=== PATIENT | female | born 1950 | race Caucasian/White ===

== ENCOUNTER 2018-01-15 12:30 | Emergency (ER) | payer OTHER ==
[~2018-01-15] VITALS: Ht 165.1 cm; Wt 90.7 kg
[~2018-01-15 12:30] MED LIST: ALBU90OI6 INH; ALBU90OI61; AMIT25 PO; Ativan1 MG PO; BACL10 PO; BECL80OI INH; Benadryl 50 mg50 MG PO; CITA20 PO; Cleocin HCl300 MG PO; DIAZ5 PO; DILT120 PO; DILT30; DOCU100; FERRETTS; FURO20 PO; HYDACE10B PO; HYDACE5 PO; HYDMOR4 PO; HYDPAM25 PO; Hydrocodone-Ap1 EA23; IRON150C PO; LABE200 PO; LAVAP17G; LORPSEER12; METO50ER; METPRE4DP PO; MONT10T PO; Micro-K10 MEQ PO; Multiple Vitam1 EAC1; OMEP20ER PO; OXYC5 PO; PREG200 PO; Pepcid40 MG PO; Percocet 5-3251 EACH PO; Prilosec Otc20 MG PO; RXHYDMOR2 PO; SUCR1SU PO; SULTRIDS PO; TRAZ50 PO; VIRT-CAPS SOFTGE1 MG PO; WARF1; WARF4 PO
[2018-01-15] MEDS ORDERED: FOLI1 PO (13:17)
[2018-01-15] MEDS ORDERED: METO50ER PO (13:17)
[2018-01-15] MEDS ORDERED: PREG200 PO (13:18)
[2018-01-15] MEDS ORDERED: HYDR-86 (13:18)
[2018-01-15] MEDS ORDERED: MONT10T PO (13:18)
[2018-01-15] MEDS ORDERED: ALBU90OI61 INH (13:18)
[2018-01-15] MEDS ORDERED: ERYT1OIN RIGHTEYE (13:42)
== END 2018-01-15 13:46 | disposition home or self-care (01) ==
LOC: ER 12:30
DX: S05.01XA Injury of conjunctiva and corneal abrasion without foreign body, right eye, initial encounter (principal); Z88.0 Allergy status to penicillin; Z79.899 Other long term (current) drug therapy; J45.909 Unspecified asthma, uncomplicated; I10 Essential (primary) hypertension; Z87.891 Personal history of nicotine dependence; X58.XXXA Exposure to other specified factors, initial encounter
CPT/HCPCS: 99283